=== PATIENT | female | born 1980 | race Two or more races ===

== ENCOUNTER 2017-02-03 17:42 | Emergency (ER) | payer MEDICAID ==
[~2017-02-03] VITALS: Ht 167.6 cm; Wt 90.7 kg
[~2017-02-03 17:42] MED LIST: CEPH-37 PO
[2017-02-03 18:15] VITALS: BP 143/94
== END 2017-02-03 19:44 | disposition home or self-care (01) ==
LOC: ER 17:51
DX: H02.87 Vascular anomalies of eyelid (principal); Z88.0 Allergy status to penicillin; F12.10 Cannabis abuse, uncomplicated

== ENCOUNTER 2021-12-17 11:23 | Emergency (ER) | payer MEDICAID, OTHER ==
[~2021-12-17] VITALS: Ht 167.6 cm; Wt 93.9 kg
[2021-12-17 12:45] VITALS: BP 128/88
== END 2021-12-17 13:35 | disposition home or self-care (01) ==
LOC: ER 11:23
DX: S00.03XA Contusion of scalp, initial encounter (principal); W21.07XA Struck by softball, initial encounter; Y93.89 Activity, other specified; Y92.89 Other specified places as the place of occurrence of the external cause; Y99.8 Other external cause status
CPT/HCPCS: 70450

== ENCOUNTER 2022-03-23 21:04 | Emergency (ER) | payer OTHER ==
[~2022-03-23] VITALS: Ht 167.6 cm; Wt 207.0 kg
[2022-03-23 21:04] VITALS: BP 143/95
[2022-03-23 23:59] LABS: Basophils # (auto) 0 10 ^3/uL (0-0.2); Basophils % (auto) 0.4 % (0.0-2.0); Eosinophils # (auto) 0.3 10 ^3/uL (0-0.8); Eosinophils % (auto) 2.7 % (0.0-7.0); Hematocrit 44.9 % (36.0-46.0); Hemoglobin 14.9 g/dL (12.2-16.2); Lymphocytes # (auto) 3.1 10 ^3/uL (0.4-5.4); Lymphocytes % (auto) 26.5 % (10.0-50.0); Mean Corpuscular Hemoglobin 31.3 pg (28.0-32.0); Mean Corpuscular Hgb Conc. 33.1 g/dL (32.0-36.0); Mean Corpuscular Volume 94.8 fL (80.0-100.0); Monocytes # (auto) 0.7 10 ^3/uL (0-1.3); Monocytes % (auto) 5.6 % (0.0-12.0); Neutrophils # (auto) 7.6 10 ^3/uL (1.6-8.6); Neutrophils % (auto) 64.8 % (37.0-80.0); Red Blood Cells 4.74 10^6/uL (4.0-5.20); Red Cell Distribution Width 13.4 % (11.8-14.3); White Blood Cell 11.7 10^3/uL (4.4-10.8)
[2022-03-24 00:19] LABS: Albumin 3.9 g/dL (3.4-5.0); BUN/Creatinine Ratio 19.5; Calcium 8.7 mg/dL (8.5-10.1); Potassium 3.6 mmol/L (3.5-5.1)
[2022-03-24 00:22] LABS: Bilirubin, Total 0.2 mg/dL (0.2-1.0); Total Protein 8.2 g/dL (6.4-8.2)
[2022-03-24 00:25] LABS: Urine Bacteria MOD /hpf (None Seen); Urine Blood Negative /uL (Negative); Urine Specific Gravity 1.018 (1.001-1.035); Urine WBC 7 /hpf (0 - 5)
[2022-03-24] MEDS ORDERED: LEVO500T31 PO (05:59)
[2022-03-24] MEDS ORDERED: METR500T PO (05:59)
== END 2022-03-24 05:59 | disposition home or self-care (01) ==
LOC: ER 21:04
DX: K57.32 Diverticulitis of large intestine without perforation or abscess without bleeding (principal); Z79.899 Other long term (current) drug therapy; Z88.0 Allergy status to penicillin
CPT/HCPCS: 36415; 74176; 80053; 81001; 84702; 85025

== ENCOUNTER 2022-04-18 08:59 | Emergency (ER) | payer OTHER ==
[~2022-04-18] VITALS: Ht 165.1 cm; Wt 90.2 kg
[~2022-04-18 08:59] MED LIST changes: +LEVO500T31 PO; +METR500T PO
[2022-04-18 11:52] VITALS: BP 125/91
[2022-04-18] MEDS ORDERED: ACET-1080 PO (12:04)
[2022-04-18] MEDS ORDERED: PRED20TA2 PO (12:04)
== END 2022-04-18 12:10 | disposition home or self-care (01) ==
LOC: ER 08:59
DX: M54.32 Sciatica, left side (principal); Z79.899 Other long term (current) drug therapy; Z88.0 Allergy status to penicillin
CPT/HCPCS: 93971

== ENCOUNTER 2022-04-29 19:38 | Emergency (ER) | payer OTHER ==
[~2022-04-29] VITALS: Ht 165.1 cm; Wt 87.0 kg
[~2022-04-29 19:38] MED LIST changes: +ACET-1080 PO; +PRED20TA2 PO
[2022-04-29 20:59] VITALS: BP 152/88
== END 2022-04-30 01:51 | disposition home or self-care (01) ==
LOC: ER 19:43
DX: Z00.00 Encounter for general adult medical examination without abnormal findings (principal); Z79.899 Other long term (current) drug therapy; Z88.0 Allergy status to penicillin